=== PATIENT | male | born 1980 | race Caucasian/White ===

== ENCOUNTER 2025-03-21 14:48 | Observation (INO) | payer BC ==
[~2025-03-21] VITALS: Ht 172.7 cm; Wt 72.3 kg
[2025-03-21] MEDS: PERCOCET 5MG/325MG TAB PO ONE (15:25)
[2025-03-21 17:33] LABS: BASO # 0.0 10^3/uL (0.0-0.2); BASO % 0.2 % (0.0-1.0); EOS # 0.0 10^3/uL (0.0-0.5); EOS % 0.1 % (0.0-3.0); LYMPH # 0.9 10^3/uL (1.5-5.0); LYMPH % 5.5 % (24.0-44.0); MONO # 1.0 10^3/uL (0.0-0.8); MONO % 6.1 % (2.0-8.0); NEUTROPHILS # 15.0 10^3/uL (1.5-8.5); NEUTROPHILS % 87.7 % (36.0-66.0); PLATELET COUNT, AUTOMATED 255 10^3/uL (150-450)
[2025-03-21] MEDS ORDERED: HOME MED LIST COMPLETE! XX SCH (17:45)
[2025-03-21 17:49] LABS: CALCIUM LEVEL 9.5 MG/DL (8.5-10.1); CARBON DIOXIDE LEVEL 25 MMOL/L (20-31); CHLORIDE LEVEL 102 MMOL/L (98-107); CREATININE FOR GFR 0.87 MG/DL (0.70-1.30); GLOMERULAR FILTRATION RATE > 90.0 (>60); POTASSIUM SERUM 3.9 MMOL/L (3.5-5.1); SODIUM LEVEL 140 MMOL/L (136-145)
[2025-03-21] MEDS ORDERED: MORPHINE 4 MG/ML 1 ML VIAL IV PRN (18:50)
[2025-03-21] MEDS ORDERED: PERCOCET 5MG/325MG TAB PO PRN ×2 (18:50)
[2025-03-21] MEDS ORDERED: ONDANSETRON 4MG 2ML VIAL IV PRN (18:50)
[2025-03-21] MEDS ORDERED: ACETAMINOPHEN 325 MG TAB PO PRN (18:50)
[2025-03-21 20:08] VITALS: BP 126/72; TEMP 99.4; O2SAT 98
[2025-03-21] MEDS: KETOROLAC 30 MG/ML 1 ML VIAL IV SCH (20:25)
[2025-03-22 00:09] VITALS: BP 109/61; TEMP 98.8; O2SAT 98
[2025-03-22 03:41] VITALS: BP 116/65; TEMP 98.3; O2SAT 100
[2025-03-22 05:53] LABS: BASO # 0.0 10^3/uL (0.0-0.2); BASO % 0.4 % (0.0-1.0); EOS # 0.1 10^3/uL (0.0-0.5); EOS % 1.4 % (0.0-3.0); LYMPH # 1.6 10^3/uL (1.5-5.0); LYMPH % 16.9 % (24.0-44.0); MONO # 1.0 10^3/uL (0.0-0.8); MONO % 9.9 % (2.0-8.0); NEUTROPHILS # 6.9 10^3/uL (1.5-8.5); NEUTROPHILS % 71.2 % (36.0-66.0); PLATELET COUNT, AUTOMATED 228 10^3/uL (150-450)
[2025-03-22 06:22] LABS: CALCIUM LEVEL 9.1 MG/DL (8.5-10.1); CARBON DIOXIDE LEVEL 27 MMOL/L (20-31); CHLORIDE LEVEL 106 MMOL/L (98-107); CREATININE FOR GFR 0.82 MG/DL (0.70-1.30); GLOMERULAR FILTRATION RATE > 90.0 (>60); POTASSIUM SERUM 4.5 MMOL/L (3.5-5.1); SODIUM LEVEL 140 MMOL/L (136-145)
[2025-03-22 07:31] VITALS: BP 117/56; TEMP 98; O2SAT 97
[2025-03-22] MEDS: ENOXAPARIN 40 MG/0.4 ML SYRINGE (J1650 PER 10MG) SC SCH (07:50)
== END 2025-03-22 11:49 | disposition home or self-care (01) ==
LOC: M ED 14:48 → M ED INP 14:49 → M PCU 20:09
PROVIDERS: ADMIT Surgery; ATTEND Surgery
DX: S42.025A Nondisplaced fracture of shaft of left clavicle, initial encounter for closed fracture (principal); S22.32XA Fracture of one rib, left side, initial encounter for closed fracture; V86.56XA Driver of dirt bike or motor/cross bike injured in nontraffic accident, initial encounter; Y92.89 Other specified places as the place of occurrence of the external cause; Z88.7 Allergy status to serum and vaccine; Z91.018 Allergy to other foods
CPT/HCPCS: 36415; 70450; 71045; 71046; 72125; 73000; 73030; 80048; 85025; 86850; 86900; 86901; 96374; 96376; 99285; J1885